=== PATIENT | female | born 1950 | race Caucasian/White ===

== ENCOUNTER → 2018-03-13 | Outpatient (REF) | LOC: ZLAB.WCH 08:37 | DX: Z01.89 Encounter for other specified special examinations (principal) ==

== ENCOUNTER → 2018-03-18 | Outpatient (REF) | LOC: ZLAB.WCH 16:04 | DX: Z01.89 Encounter for other specified special examinations (principal) ==

== ENCOUNTER → 2018-03-24 | Outpatient (REF) | LOC: ZLAB.WCH 08:50 | DX: Z01.89 Encounter for other specified special examinations (principal) ==

== ENCOUNTER → 2018-03-31 | Outpatient (REF) ==
[2018-03-31 09:16] LABS: PRE ALBUMIN 26.1 mg/dL (17.6-36.0)
[2018-03-31 09:40] LABS: THYROID STIMULATING HORMONE 1.6 uIU/mL (0.465-4.680)
== END ==
LOC: ZLAB.WCH 08:48
PROVIDERS: Internal Medicine
DX: Z01.89 Encounter for other specified special examinations (principal)

== ENCOUNTER → 2018-04-03 | Outpatient (REF) | LOC: ZLAB.WCH 17:41 | DX: Z01.89 Encounter for other specified special examinations (principal) ==

== ENCOUNTER 2018-04-07 13:02 | Outpatient (CLI) | payer MEDICARE, MEDICAID ==
[~2018-04-07] VITALS: Wt 102.0 kg
[~2018-04-07 13:02] MED LIST changes: -DESENEX21 TOP; -IMODIUM 2MG CAPS2 MG PO; -IPRATROPIUM BROM3 M1 IH; -KLOR-CON20 MEQ PO; -LASIX 20MG TABL20 MG PO; -LEVEMIR100 U/ML SQ; -LIPITOR20 MG PO; -NOVOLOG 100U100 U/M1 SQ; -PROTONIX 40MG T40 MG PO; -RT ALBUTER2.5 MG/0.5 IH; -SLOW-MAG 6464 MG/TAB PO; -TYLENOL ELIX32 MG/M2 PEG; -ZANTAC 300300 MG PO; -ZESTRIL 5MG5 MG PO
[2018-04-07] MEDS ORDERED: DESENEX21 TOP (13:03)
[2018-04-07] MEDS ORDERED: KLOR-CON20 MEQ PO (13:04)
[2018-04-07] MEDS ORDERED: LEVEMIR100 U/ML SQ (13:05)
[2018-04-07] MEDS ORDERED: NOVOLOG 100U100 U/M1 SQ (13:06)
[2018-04-07] MEDS ORDERED: LASIX 20MG TABL20 MG PO (13:06)
[2018-04-07] MEDS ORDERED: LIPITOR20 MG PO (13:07)
[2018-04-07] MEDS ORDERED: SLOW-MAG 6464 MG/TAB PO (13:08)
[2018-04-07] MEDS ORDERED: PROTONIX 40MG T40 MG PO (13:08)
[2018-04-07] MEDS ORDERED: ZANTAC 300300 MG PO (13:11)
[2018-04-07] MEDS ORDERED: ZESTRIL 5MG5 MG PO (13:11)
[2018-04-07] MEDS ORDERED: IMODIUM 2MG CAPS2 MG PO (13:13)
[2018-04-07] MEDS ORDERED: IPRATROPIUM BROM3 M1 IH (13:13)
[2018-04-07] MEDS ORDERED: RT ALBUTER2.5 MG/0.5 IH (13:13)
[2018-04-07] MEDS ORDERED: TYLENOL ELIX32 MG/M2 PEG (13:14)
[2018-04-07 13:43] VITALS: BP 116/77; PULSE 88; TEMP 97.6
== END 2018-04-07 14:27 | disposition swing bed (61) ==
LOC: EUO 13:02
DX: Z45.2 Encounter for adjustment and management of vascular access device (principal); I51.7 Cardiomegaly; N39.0 Urinary tract infection, site not specified; B96.5 Pseudomonas (aeruginosa) (mallei) (pseudomallei) as the cause of diseases classified elsewhere
CPT/HCPCS: C1751; C1894

== ENCOUNTER → 2018-04-07 | Outpatient (REF) ==
[~2018-04-07] MED LIST: ASPIRIN 81M81 MG/TA2 PO; CATAPRES-TTS 20.2 M1 TD; COREG 6.256.25 MG/TA PO; DESENEX21 TOP; IMODIUM 2MG CAPS2 MG PO; IPRATROPIUM BROM3 M1 IH; KLOR-CON20 MEQ PO; LASIX 20MG TABL20 MG PO; LEVEMIR100 U/ML SQ; LIPITOR20 MG PO; NOVOLOG 100U100 U/M1 SQ; PROTONIX 40MG T40 MG PO; RT ALBUTER2.5 MG/0.5 IH; SLOW-MAG 6464 MG/TAB PO; TYLENOL ELIX32 MG/M2 PEG; ZANTAC 300300 MG PO; ZESTRIL 5MG5 MG PO
== END ==
LOC: ZLAB.WCH 08:44
DX: Z01.89 Encounter for other specified special examinations (principal)

== ENCOUNTER → 2018-04-14 | Outpatient (REF) ==
[~2018-04-14] MED LIST changes: +DESENEX21 TOP; +IMODIUM 2MG CAPS2 MG PO; +IPRATROPIUM BROM3 M1 IH; +KLOR-CON20 MEQ PO; +LASIX 20MG TABL20 MG PO; +LEVEMIR100 U/ML SQ; +LIPITOR20 MG PO; +NOVOLOG 100U100 U/M1 SQ; +PROTONIX 40MG T40 MG PO; +RT ALBUTER2.5 MG/0.5 IH; +SLOW-MAG 6464 MG/TAB PO; +TYLENOL ELIX32 MG/M2 PEG; +ZANTAC 300300 MG PO; +ZESTRIL 5MG5 MG PO
== END ==
LOC: ZLAB.WCH 18:14
DX: Z01.89 Encounter for other specified special examinations (principal)